=== PATIENT | male | born 1995 | race Caucasian/White ===

== ENCOUNTER 2018-01-15 13:27 | Emergency (ER) | payer OTHER ==
[2018-01-15 13:40] VITALS: BP 115/63
[2018-01-15 16:51] LABS: BILIRUBIN,URINE NEGATIVE (NEGATIVE); GLUCOSE, URINE (UA) NEGATIVE (NEGATIVE); KETONES,URINE (UA) NEGATIVE (NEGATIVE); LEUKOCYTE ESTERASE, URINE NEGATIVE (NEGATIVE); NITRITE,URINE NEGATIVE (NEGATIVE); OCCULT BLOOD,URINE NEGATIVE (NEGATIVE); PROTEIN,URINE NEGATIVE (NEGATIVE); UROBILINOGEN,URINE 0.2 (NORMAL) E.U./dL (NORMAL)
[2018-01-15 16:54] LABS: CLARITY,URINE CLEAR (CLEAR)
[2018-01-15] MEDS ORDERED: cefTRIAXone 250 MG VIAL IM STA (16:59)
[2018-01-15] MEDS ORDERED: LIDOCAINE 1% 2 ML VIAL SUBQ ONE (16:59)
[2018-01-15] MEDS ORDERED: AZITHROMYCIN 250 MG TABLET PO STA (16:59)
--- NOTE | 2018-01-15 17:00 | ED Physician Documentation ---
PD HPI MALE - Stated complaint Stated Complaint: MALE - Chief complaint Chief Complaint: General - History obtained from History obtained from: Patient - History of Present Illness Timing - onset: How many days ago (3) Timing - duration: Days (3) Timing - details: Gradual onset, Still present Associated symptoms: Dysuria, Discharge PD HPI MALE CONTRIB FACTORS: Sexually active, Exposed to STD Similar symptoms before: Has not had sx before Recently seen: Not recently seen - Additional information Additional information: 22-year-old male who is sexually active believes he may be exposed to STD. He has developed a slight discharge and irritation to the end of the urethra. He denies any adenopathy or sores. Review of Systems Constitutional: denies: Fever Respiratory: denies: Cough GI: denies: Nausea, Vomiting : reports: Dysuria, Discharge Skin: denies: Rash, Lesions Musculoskeletal: denies: Neck pain, Back pain, Extremity pain Neurologic: denies: Generalized weakness, Focal weakness, Numbness PD PAST MEDICAL HISTORY - Past Medical History Past Medical History: No - Past Surgical History Past Surgical History: No - Allergies Allergies/Adverse Reactions: Allergies Allergy/AdvReac Type Severity Reaction Status Date / Time No Known Drug Allergies Allergy Verified 01/15/18 13:40 - Social History Does the pt smoke?: No Smoking Status: Never smoker Does the pt drink ETOH?: No Does the pt have substance abuse?: No - Immunizations Immunizations are current?: Yes - POLST Patient has POLST: No PD ED PE NORMAL - Vitals Vital signs reviewed: Yes (normal ) - General General: No acute distress, Well developed/nourished - HEENT HEENT: Atraumatic, PERRL, EOMI - Respiratory Respiratory: No respiratory distress - Abdomen Abdomen: No: Other - Male Male : Other (irritation to the distal urethra. No swelling tenderness to the testes) - Derm Derm: Normal color, Warm and dry, No rash - Extremities Extremities: No deformity, No edema - Neuro Neuro: Alert and oriented X 3, No motor deficit, No sensory deficit, Normal speech Eye Opening: Spontaneous Motor: Obeys Commands Verbal: Oriented GCS Score: 15 - Psych Psych: Normal mood, Normal affect Results - Vitals Vitals: Vital Signs - 24 hr 01/15/18 13:35 Temperature 36.4 C L Heart Rate 60 Respiratory 16 Rate Blood Pressure 115/63 O2 Saturation 100 Oxygen O2 Source Room air - Labs Labs: Laboratory Tests 01/15/18 16:40 Urine Color YELLOW Urine Clarity CLEAR Urine pH 6.0 Ur Specific [place] 1.020 Urine Protein NEGATIVE Urine Glucose (UA) NEGATIVE Urine Ketones NEGATIVE Urine Occult Blood NEGATIVE Urine Nitrite NEGATIVE Urine Bilirubin NEGATIVE Urine Urobilinogen 0.2 (NORMAL) Ur Leukocyte Esterase NEGATIVE Ur Microscopic Review NOT INDICATED Urine Culture Comments NOT INDICATED PD MEDICAL DECISION MAKING - ED course Complexity details: considered differential, d/w patient ED course: 22-year-old male with exposure to STD is administered Rocephin 250 mg IM and azithromycin 1 g p.o. A specimen is obtained. - Sepsis Event Vital Signs: Vital Signs - 24 hr 01/15/18 13:35 Temperature 36.4 C L Heart Rate 60 Respiratory 16 Rate Blood Pressure 115/63 O2 Saturation 100 Oxygen O2 Source Room air Departure - Departure Disposition: 01 Home, Self Care Clinical Impression: STD (male) Condition: Stable Instructions: ED STD Male Treated Follow-Up: VIJAY Talbot [Provider Group]
== END 2018-01-15 17:21 | disposition home or self-care (01) ==
LOC: ED 13:27
DX: A64 Unspecified sexually transmitted disease (principal)
CPT/HCPCS: 81003; 87491; 87591; 96372; 99283; A9270; 81001; 87086